=== PATIENT | female | born 1980 | race Caucasian/White ===

== ENCOUNTER 2019-02-13 06:56 | Day surgery (SDC) | payer BC ==
[~2019-02-13] VITALS: Ht 154.9 cm; Wt 57.9 kg
[2019-02-13 07:00] VITALS: Ht 154.9 cm; Wt 57.9 kg
[2019-02-13] MEDS ORDERED: ONDANSETRON (ODT) 4 MG TAB ODT STA (07:14)
[2019-02-13] MEDS ORDERED: HYDROCODONE/APAP (5/325) TAB PO ONE (07:30)
--- NOTE | 2019-02-13 09:53 | QN ---
Documentation Comment The patient is seen at the bedside as per to evaluate She is a case of Incomplete currently not bleeding heavily 5 cc clots in vaginal vault cx is 2-3 cm open VS stable OR charge Nurse is informed and He will call us with a exact time for D&C&Suction is informed about the patient and he will take care of his patient and will follow up on her HALEY VILLANUEVA M.D. Feb 13, 2019 09:53
--- NOTE | 2019-02-13 10:12 | PREAC ---
Date/Time of Note Date/Time of Note DATE: 02/13/19 TIME: 10:11 Anesthesia Eval and Record Evaluation Time Pre-Procedure Interview DATE: 02/13/19 TIME: 10:11 Age 39 Sex female NPO: 8 hrs Preoperative diagnosis incomplete (7 weeks) Planned procedure D and C, suction Past Medical History Past Medical History: None Surgery & Anesthesia Issues No known issue Meds Anticoagulation: No Beta Willi within 24 hr: No Reason Beta Willi not given: Pt. not on B-Willi Meds reviewed: Yes Allergies Coded Allergies: No Known Allergy (Unverified , 02/13/19) Allergies Reviewed: Yes Labs/Studies Labs Reviewed: Reviewed by anesthesiologist Result Diagram: 02/13/19717 Laboratory Tests 02/13/19 07:18 Blood Bank Test 02/13/19 07:18 Blood Type O POSITIVE test: N/A (positive, 7 weeks then now ) Pre-procedure Exam Last vitals Vital Signs Date Temp Pulse Resp B/P (MAP) Pulse Ox O2 O2 Flow FiO2 Time Delivery Rate 02/13/19 98.5 73 18 95/49 (64) 99 Room Air 10:04 Airway: Adequate mouth opening, Adequate thyromental dist Mallampati: Mallampati II Teeth: Normal Lung: Normal Heart: Normal ASA Physical Status ASA physical status: 1 Emergency: E Planned Anesthetic General/MAC: ETT Planned Pain Management Parenteral pain med, Local by surgeon Pre-operative Attestations Prior to commencing anesthesia and surgery, the patient was re-evaluated, there was verification of: *The patient's identity *The results of appropriate recent lab work and preoperative vital signs *The above evaluation not changing prior to induction *Anesthetic plan, risk benefits, alternative and complications discussed with patient/family; questions answered; patient/family understands, accepts and wishes to proceed. JUAN PABLO BURGESS Feb 13, 2019 10:12
[2019-02-13] MEDS ORDERED: DESFLURANE 15 MIN ONE (10:20)
[2019-02-13] MEDS ORDERED: PROPOFOL 20 ML ONE (10:22)
[2019-02-13] MEDS ORDERED: FENTAnyl 50 MCG/ML VIAL ONE (10:22)
[2019-02-13] MEDS ORDERED: LIDOCAINE 2% (SDV) 5 ML INJ ONE (10:22)
[2019-02-13] MEDS ORDERED: MEPERIDINE 25 MG INJ IV PRN (10:30)
[2019-02-13] MEDS ORDERED: OXYCODONE/ACETAMINOPHEN (5/325) TAB PO PRN ×2 (10:30)
[2019-02-13] MEDS ORDERED: FENTAnyl 50 MCG/ML VIAL IV PRN ×3 (10:30)
[2019-02-13] MEDS ORDERED: ONDANSETRON 4 MG INJ IV PRN (10:30)
--- NOTE | 2019-02-13 10:31 | ERD ---
ER Documentation Chief Complaint Chief Complaint vag bleed since 01/30/19, took pills last night at 2300 HPI 39-year-old female presenting with vaginal bleeding. Patient was diagnosed with in a embryonic and was given pills to abort the yesterday. Patient began having vaginal bleeding with severe cramping starting this morning. Patient states she is passing excessive clots. Denies any chest pain or shortness of breath. Denies any dizziness. Patient is being seen by Dr. Salazar again. G5, . She took a [place] 6 hours prior to my evaluation. Denies medical problems. NKDA. Surgical history denies. Social history denies ROS All systems reviewed and are negative except as per history of present illness. Allergies Allergies: Coded Allergies: No Known Allergy (Unverified , 02/13/19) PMhx/Soc Medical and Surgical Hx: pt denies Medical Hx Hx Alcohol Use: No Hx Substance Use: No Hx Tobacco Use: No FmHx Family History: No diabetes, No coronary disease, No other Physical Exam Vitals Vital Signs Date Temp Pulse Resp B/P (MAP) Pulse Ox O2 O2 Flow FiO2 Time Delivery Rate 02/13/19 98.5 73 18 95/49 (64) 99 Room Air 10:04 02/13/19 99.2 90 18 103/63 99 07:00 (76) Physical Exam GENERAL: The patient is well-appearing, well-nourished, in no acute distress HEENT: Atraumatic. Conjunctivae are pink. Pupils equal, round, and reactive to light. There is no scleral icterus. Tympanic membranes clear bilaterally. Oropharynx clear. CHEST: Clear to auscultation bilaterally. There are no rales, wheezes or rhonchi. HEART: Regular rate and rhythm. No murmurs, clicks, rubs or gallops. ABDOMEN:Soft, nontender and nondistended. Good bowel sounds. No rebound or guarding. No gross peritonitis. No gross organomegaly or masses. PELVIC: Os open and mass noted within the cervical canal. Result Diagram: 02/13/1918 Results 24 hrs Laboratory Tests Test 02/13/19 07:18 White Blood Count 9.1 10^3/ul Red Blood Count 3.38 10^6/ul Hemoglobin 10.1 g/dl Hematocrit 30.8 % Mean Corpuscular Volume 91.1 fl Mean Corpuscular Hemoglobin 29.9 pg Mean Corpuscular Hemoglobin Concent 32.8 g/dl Red Cell Distribution Width 12.4 % Platelet Count 179 10^3/UL Mean Platelet Volume 9.5 fl Immature Granulocytes % 0.300 % Neutrophils % 82.3 % Lymphocytes % 11.8 % Monocytes % 4.1 % Eosinophils % 1.3 % Basophils % 0.2 % Nucleated Red Blood Cells % 0.0 /100WBC Immature Granulocytes # 0.030 10^3/ul Neutrophils # 7.4 10^3/ul Lymphocytes # 1.1 10^3/ul Monocytes # 0.4 10^3/ul Eosinophils # 0.1 10^3/ul Basophils # 0.0 10^3/ul Nucleated Red Blood Cells # 0.0 10^3/ul Urine Color KATRINA Urine Clarity TURBID Urine pH 7.0 Urine Specific [place] 1.026 Urine Ketones NEGATIVE mg/dL Urine Nitrite NEGATIVE mg/dL Urine Bilirubin NEGATIVE mg/dL Urine Urobilinogen NEGATIVE mg/dL Urine Leukocyte Esterase NEGATIVE Stephon/ul Urine Microscopic RBC > 182 /HPF Urine Microscopic WBC 40 /HPF Urine Mucus MANY /HPF Urine Hemoglobin 3+ mg/dL Urine Glucose NEGATIVE mg/dL Urine Total Protein 3+ mg/dl Beta HCG, Quantitative 1505.9 mIU/ml Current Medications Medications Dose Sig/Dewey Start Time Status Last (Trade) Ordered Route PRN Stop Time Admin Dose Reason Admin 1 tab ONCE ONCE 02/13/19 DC 02/13/19 Acetaminophen PO 07:30 07:20 / 02/13/19 07:31 Hydrocodone Bitart ([place] (5/325)) Ondansetron 4 mg ONCE STAT 02/13/19 DC 02/13/19 HCl (Zofran ODT 07:14 07:20 Odt) 02/13/19 07:17 Fentanyl 25 mcg PACU ORDER 02/13/19 ([place]ublimaze) PRN IV MILD 10:30 PAIN 1-3 02/13/19 15:00 Fentanyl 50 mcg PACU ORDER 02/13/19 (Sublimaze) PRN IV MOD 10:30 PAIN 4-6 02/13/19 15:00 Fentanyl 75 mcg PACU ORDER 02/13/19 (Sublimaze) PRN IV 10:30 SEVERE PAIN 02/13/19 15:00 7-10 Oxycodone/ 1 tab PACU ORDER 02/13/19 Acetaminophen PRN PO 10:30 (Percocet .PAIN 1-5 02/13/19 15:00 (5/ 325)) Oxycodone/ 2 tab PACU ORDER 02/13/19 Acetaminophen PRN PO 10:30 (Percocet .PAIN 6-10 02/13/19 15:00 (5/ 325)) Ondansetron 4 mg PACU ORDER 02/13/19 HCl (Zofran PRN IV 10:30 Inj) NAUSEA/VOMITI 02/13/19 15:00 NG Meperidine 25 mg PACU ORDER 02/13/19 HCl PRN IV 10:30 (Demerol) .RIGORS 02/13/19 15:00 Procedures/MDM DIAGNOSTIC IMAGING REPORT Patient: NICOLE HWANG : 1980 Age: 39 Sex: F MR #: [id number] DOS: 02/13/19 0714 Ordering MD: ESTEFANIA MOE PA-C Location: [facility] Room/Bed: PROCEDURE: US OB. CLINICAL INDICATION: Vaginal bleeding in . TECHNIQUE: Transabdominal and endovaginal imaging of the uterus is available for review COMPARISON: US 02/08/2019 FINDINGS: There is an irregular gestational sac within the endocervical canal with a mean sac diameter of 2.3 cm, giving an estimated gestational age of 7 weeks 1 day by ultrasound criteria. No pole or yolk sac is detected. No subchorionic hemorrhage is identified. The ovaries are unremarkable. IMPRESSION: Irregular gestational sac with estimated gestational age of approximate 7 weeks 1 day. No pole or yolk sac is seen. Findings most likely reflecting a nembryonic . The gestational sac is now located within the endocervical canal, suggesting in progress. Continued clinical follow-up and serial Beta HCG is recommended. ER Course: Dr. Mattson evaluated patient at bedside and recommend D&C. Dr. Matthews was consulted and will performed D&C on the patient today. Patient last a 10 hours prior to my evaluation. Patient is stable with a stable hemoglobin. Patient was consulted and sent to the OR for D&C procedure. She was aware of diagnosis. MDM: 39-year-old female presenting with vaginal bleeding. Patient will be taken to the OR for D&C. Patient is stable. I have low suspicion for ectopic or hemodynamic instability. All questions answered at the time of procedure. MEGAN MOE PA-C Feb 13, 2019 10:31
[2019-02-13] MEDS ORDERED: ONDANSETRON 4 MG INJ ONE (10:55)
[2019-02-13] MEDS ORDERED: DEXAMETHASONE 4 MG/ML 5 ML INJ ONE (10:55)
[2019-02-13] MEDS ORDERED: CEFAZOLIN 1 GM INJ ONE (10:55)
[2019-02-13] MEDS ORDERED: FAMOTIDINE 20 MG INJ ONE (10:55)
[2019-02-13] MEDS ORDERED: METOCLOPRAMIDE 10 MG INJ ONE (10:55)
[2019-02-13 11:12] VITALS: BP 99/53; PULSE 113; RESP 16
--- NOTE | 2019-02-13 11:13 | OPPN ---
Date/Time of Note Date/Time of Note DATE: 02/13/19 TIME: 11:12 Operative Report Preoperative Diagnosis Incomplete at 7 wks Postoperative Diagnosis Same Operation/Procedure Performed D&C&suction Surgeon see signature line real estate administrative assistant none Anesthesia: general Estimated blood loss: 0 - 10 ml's Transfusion Required none Specimen POC Grafts/Implants none Complications none HALEY VILLANUEVA M.D. Feb 13, 2019 11:13
[2019-02-13 11:19] VITALS: BP 100/57; PULSE 94; RESP 16
[2019-02-13 11:24] VITALS: BP 95/50; PULSE 90; RESP 16
[2019-02-13 11:29] VITALS: BP 98/57; PULSE 88; RESP 16
[2019-02-13 11:34] VITALS: BP 94/50; PULSE 86; RESP 15
[2019-02-13 12:00] VITALS: BP 99/54; PULSE 92; RESP 16
--- NOTE | 2019-02-13 12:26 | PAC ---
Date/Time of Note Date/Time of Note DATE: 02/13/19 TIME: 12:26 Post-Anesthesia Notes Post-Anesthesia Note Last documented vital signs Vital Signs Date Temp Pulse Resp B/P (MAP) Pulse Ox O2 O2 Flow FiO2 Time Delivery Rate 02/13/19 86 15 94/50 (65) 100 Mask 6.0 11:34 02/13/19 99.4 11:12 Activity: WNL Respiratory function: WNL Cardiovascular function: WNL Mental status: Baseline Pain reasonably controlled: Yes Hydration appropriate: Yes Nausea/Vomiting absent: Yes JUAN PABLO BURGESS Feb 13, 2019 12:26
--- NOTE | 2019-02-13 15:27 | OPR ---
DATE OF OPERATION: 02/13/2019 PREOPERATIVE DIAGNOSIS: Incomplete at 7 weeks. POSTOPERATIVE DIAGNOSIS: Incomplete at 7 weeks. OPERATION PERFORMED: Dilation and curettage and suction. ATTENDING SURGEON: Chago Mattson MD ANESTHESIA: General. COMPLICATIONS: None. ESTIMATED BLOOD LOSS: Minimal. TECHNIQUE: The patient was taken to the operating room where general anesthesia was found to be adeq uate. The patient was placed in dorsal lithotomy position. After prep and drape, a weighted speculu m was placed inside the vaginal vault. Anterior lip of the cervix was grasped using single tooth ten aculum. Intrauterine cavity was suctioned. Sharp curettage of endometrial cavity was done. Hemosta sis achieved. Instruments removed. The patient tolerated the procedure well and was transferred to recovery room in stable condition. There was no complication regarding this surgery. Dictated By: CHAGO GOMEZ/LASHELL Conf#: [id number] DID#: [id number]
--- NOTE | 2019-02-13 15:30 | PREOPHP ---
DATE OF ADMISSION: 02/13/2019 HISTORY OF PRESENT ILLNESS: The patient is a 39-year-old female with a chief complaint of vaginal bl eeding, admitted through the Emergency Room. PAST MEDICAL HISTORY: Denies. PAST SURGICAL HISTORY: Denies. PHYSICAL EXAMINATION: VITAL SIGNS: Stable. GENERAL: Normal. ABDOMEN: Gravid, not tender, not distended. GENITAL: Around 5-10 mL clots in the vaginal vault. Cervix is 2 to 3 cm open. ASSESSMENT AND PLAN: A 39-year-old with the diagnosis of incomplete . Patient was consented for dilation and curettage and suction. Risks and benefits discussed. Alternatives discussed. Ris ks and benefits of alternatives discussed. The patient signed the consent and was taken to the opera tin room. Dictated By: HALEY GOMEZ/LASHELL Conf#: [id number] DID#: [id number]
== END 2019-02-13 12:36 | disposition home or self-care (01) ==
LOC: FTE 06:56 → SUR 10:45 → SDS 10:45 → SUR 12:36
PROVIDERS: ATTEND Obstetrics & Gynecology
DX: O03.4 Incomplete spontaneous abortion without complication (principal)
CPT/HCPCS: 59812; 76801; 76817; 81001; 84702; 85025; 86900; 86901; 88305; J0690; J1100; J2405; J2765; J3010; Z7512; Z7610